=== PATIENT | male | born 1965 | race Caucasian/White ===

== ENCOUNTER 2021-05-28 08:16 | Emergency (ER) | payer OTHER, SELFPAY ==
[2021-05-28 08:35] VITALS: BP 157/95; PULSE 79; RESP 19; TEMP 36.9; O2SAT 99; BMI 29.8
--- NOTE | 2021-05-28 08:47 | ECG_ITS ---
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 Measurements Intervals [place] Rate: 75 P: 59 TN: 182 QRS: 30 QRSD: 91 T: 28 QT: 390 QTc: 437 Interpretive Statements SINUS RHYTHM WITH OCCASIONAL VENTRICULAR PREMATURE COMPLEXES Compared to ECG 05/28/2021 08:55:48 Ventricular premature complex(es) now present Myocardial infarct finding no longer present Electronically Signed On 05-28-2021 16:05:35 FINANCIAL SYSTEMS ANALYST by Ragini Ivy M.D. [email or web address] Real Estatewest [facility] of delta regional medical centerSmartExposeebluffton hospital.iCrumz/store/OM/[id number]
--- NOTE | 2021-05-28 08:47 | XR_ITS ---
WS: [id number] Exam: XR chest 1V portable [id number] Date/Time of Exam: 05/28/2021 9:06 AM Reason For Exam: chest pain No priors. Findings: The lungs are clear and fully expanded. Costophrenic angles are sharp. No infiltrates. Bronchovascula r relief appears normal. Cardiac silhouette is unremarkable. Bony elements are intact. XR/XR chest 1V portable [id number] IMPRESSION: Unremarkable chest radiograph.
[2021-05-28] MEDS: aspirin 81 mg Chew Tablet 324 MG PO (09:09)
[2021-05-28 09:22] VITALS: BP 171/102; PULSE 76; RESP 17; O2SAT 98
[2021-05-28 09:38] LABS: Basophils # 0.1 10^3/uL (0.0-0.1); Basophils % 0.9 %; Eosinophils # 0.2 10^3/uL (0.0-0.8); Eosinophils % 2.5 %; Hematocrit 49.9 % (42.0-52.0); Hemoglobin 16.2 g/dL (11.7-16.6); Lymphocytes # 1.6 10^3/uL (0.8-4.8); Lymphocytes % 24.4 %; Mean Corpuscular HGB Conc 32.5 g/dL (30.0-36.0); Mean Corpuscular Hemoglobin 30.6 pg (28.0-34.0); Mean Corpuscular Volume 94.3 fl (80-94); Mean Platelet Volume 11.2 fL (7.4-10.4); Monocytes # 0.7 10^3/uL (0.2-0.9); Nucleated Red Blood Cells % 0 %; Platelet Count 215 10^3/cmm (130-400); Red Blood Count 5.29 10^6/uL (4.1-5.3); Red Cell Distribution Width 11.9 % (12.1-15.1); White Blood Count 6.4 10^3/uL (4.0-10.0)
--- NOTE | 2021-05-28 09:59 | W.ED.CHESTPA ---
HPI - Chest Pain General: Chief Complaint: Chest Pain Stated Complaint: Chest Pain Time Seen by Provider: 05/28/21 08:19 History of Present Illness: HPI narrative: 55-year-old male presents emergency room complaining of what he describes as a numbness in the left side of his anterior chest. He denies any shortness of breath there is no radiation of discomfort. Began last night while at rest. He did have one episode of vomiting is not had any further nausea since then for the most part is resolved now. He states he does not particularly feel like a pressure more just a numb sensation. He equates it to a nerve impingement he had in his lumbar spine that radiates down his left leg. He is not previously had any known history of coronary artery disease. He has had these episodes in the past have been very short in duration lasting literally seconds and then resolving spontaneously. MD complaint: chest discomfort Onset (ago): day(s) (1) Timing of current episode: episodic Prior episodes: Yes Onset: during rest Pain location: left chest Pain radiation: none Severity: mild Relieving factors: nothing Exacerbating factors: nothing Associated symptoms: Deny abdominal pain, diaphoresis, dyspnea, fever(s), leg edema, nausea, palpitations, sense of impending doom, syncope or vomiting Treatment prior to arrival: none Review of Systems Const: Denies: fever(s) or diaphoresis ENMT: Denies: throat pain, ear or mastoid pain, nasal discharge or nasal congestion Card: Denies: palpitations or syncope Resp: Denies: dyspnea GI: Denies: abdominal pain, nausea or vomiting : Denies: flank pain, dysuria, urinary frequency or urinary urgency Skin/Breast: Denies: rash or pruritus Physical Exam Const: COMMON NORMALS: no acute distress GENERAL APPEARANCE: cooperative and comfortable ORIENTATION/CONSCIOUSNESS: Yes awake, Yes oriented to person, Yes oriented to place and Yes oriented to time HENMT: COMMON NORMALS: normocephalic, atraumatic, hearing grossly normal bilaterally and external ears normal HEAD & SCALP: normocephalic and atraumatic EXTERNAL EAR: Yes external ears normal Neck/C-Spine: COMMON NORMALS: no JVD Resp: COMMON NORMALS: normal respiratory effort, No retractions, No use of accessory muscles and clear to auscultation bilaterally AUSCULTATION: clear to auscultation bilaterally Cardio: COMMON NORMALS: no JVD, regular rate, regular rhythm and No murmurs present (Cardio) RATE: regular rate RHYTHM: regular rhythm GI: COMMON NORMALS: Soft to palpation and No hepatosplenomegaly present AUSCULTATION: Yes normoactive bowel sounds PALPATION: Yes Soft to palpation, No Tenderness to palpation present (GI), No Guarding due to palpation present (GI) and Yes No hepatosplenomegaly present Extremity: COMMON NORMALS: normal to inspection, capillary refill normal, no clubbing, cyanosis or edema, no calf tenderness and no pedal edema Neuro: SENSORIUM/ORIENTATION: Yes oriented to person, Yes oriented to place and Yes oriented to time Skin: COMMON NORMALS: no rashes or lesions noted GENERAL SKIN EXAM: no rashes or lesions noted Course Vital Signs: Vital signs: Vital Signs Temperature 98.5 F 05/28/21 08:35 Pulse Rate 76 05/28/21 12:19 Respiratory Rate 18 05/28/21 12:19 Blood Pressure 137/98 05/28/21 12:19 Pulse Oximetry 97 05/28/21 12:19 MDM - Chest Pain MDM Narrative: Medical decision making narrative: Labs and imaging reviewed on the chart. Recommend the patient start taking aspirin daily. EKGs also reviewed no acute ST changes noted troponins negative we will go and discharge home set up for outpatient stress testing return if has further problems. Lab Data: Labs: Lab Results 05/28/21 05/28/21 05/28/21 09:00 09:00 09:00 WBC 6.4 10^3/uL 10^3/ uL (4.0-10.0) RBC 5.29 10^6/uL 10^6 /uL (4.1-5.3) Hgb 16.2 g/dL g/dL (11.7-16.6) Hct 49.9 % % (42.0-52.0) MCV 94.3 fl H fl (80-94) MCH 30.6 pg pg (28.0-34.0) MCHC 32.5 g/dL g/dL (30.0-36.0) RDW 11.9 % L % (12.1-15.1) Plt Count 215 10^3/cmm 10^3 /cmm (130-400) MPV 11.2 fL H fL (7.4-10.4) Neut % (Auto) 61.0 % % Lymph % (Auto) 24.4 % % [place] % (Auto) 11.0 % % Eos % (Auto) 2.5 % % Baso % (Auto) 0.9 % % Neut # (Auto) 3.90 10^3/uL 10^3 /uL (1.8-7.7) Lymph # (Auto) 1.6 10^3/uL 10^3/ uL (0.8-4.8) [place] # (Auto) 0.7 10^3/uL 10^3/ uL (0.2-0.9) Eos # (Auto) 0.2 10^3/uL 10^3/ uL (0.0-0.8) Baso # (Auto) 0.1 10^3/uL 10^3/ uL (0.0-0.1) Nucleated RBC % (a uto) 0 % % Nucleated RBCs # 0.0 /100WBC /100W BC Sodium 139 mmol/L mmol/L (136-145) Potassium 3.7 mmol/L mmol/L (3.5-5.1) Chloride 100 mmol/L mmol/L (98-107) Carbon Dioxide 28 mmol/L mmol/L (22-29) Anion Gap 14.7 (5-19) BUN 11 mg/dL mg/dL (6-20) Creatinine 1.0 mg/dL mg/dL (0.7-1.2) GFR Calculation 78.2 mL/min L mL/ min (90-130) Glucose 100 mg/dL mg/dL (65-115) Calculated Osmolal ity 287 mOsm/kg mOsm/ kg (285-295) Calcium 10.1 mg/dL mg/dL (8.5-10.5) Total Bilirubin 0.4 mg/dL mg/dL (0.15-1.2) AST 32 U/L U/L (0-40) ALT 40 U/L U/L (0-41) Alkaline Phosphata se 88 IU/L IU/L (40-130) Troponin T Baselin e 8 ng/L ng/L (0-15) Troponin T 120 Min [place] Troponin T Total Protein 8.2 g/dL g/dL (6.6-8.7) Albumin 4.6 g/dL g/dL (3.5-5.2) Globulin 3.6 g/dL g/dL (1.3-4.6) 05/28/21 11:01 WBC RBC Hgb Hct MCV MCH MCHC RDW Plt Count MPV Neut % (Auto) Lymph % (Auto) [place] % (Auto) Eos % (Auto) Baso % (Auto) Neut # (Auto) Lymph # (Auto) [place] # (Auto) Eos # (Auto) Baso # (Auto) Nucleated RBC % (a uto) Nucleated RBCs # Sodium Potassium Chloride Carbon Dioxide Anion Gap BUN Creatinine GFR Calculation Glucose Calculated Osmolal ity Calcium Total Bilirubin AST ALT Alkaline Phosphata se Troponin T Baselin e Troponin T 120 Min [place] 7.30 ng/L ng/L (0-15) Delta Troponin T -0.70 ABS# L ABS# (0-10) Total Protein Albumin Globulin Discharge Plan Discharge Patient Disposition: Home Clinical Impression: Atypical chest pain Condition: Stable Prescriptions: New aspirin 81 mg tablet,delayed release (DR/EC) 81 mg PO DAILY Qty: 30 RF: 0 No Action terazosin 1 mg capsule 1 mg PO BEDTIME RF: 0 Aleve 220 mg Tablet 440 mg PO Q12H PRN (Reason: Pain) RF: 0 hydrochlorothiazide 25 mg tablet 25 mg PO QAM RF: 0 bupropion HCl 150 mg tablet extended release 24 hr 150 mg PO QAM RF: 0 Discharge Orders: Discharge ED (Routine); Ordered 05/28/21 Ordered By: Aryan Hurst Referrals: Shon Garza MD [Primary Care Provider] - Discharge Diet: Usual diet Discharge Activity: Limit activity as instructed Patient Instructions: Opioid Safety Activity Restrictions/Additional Instructions: jewelry store manager will make arrangements for a Lexiscan sestamibi stress test. Coding Level of Care Code ED Market Research Senior Project Manager for Juan Fwd Exam Comprehensive
[2021-05-28 10:16] LABS: Alanine Aminotransferase 40 U/L (0-41); Albumin Level 4.6 g/dL (3.5-5.2); Alkaline Phosphatase 88 IU/L (40-130); Anion Gap 14.7 (5-19); Aspartate Amino Transferase 32 U/L (0-40); Blood Urea Nitrogen 11 mg/dL (6-20); Calcium 10.1 mg/dL (8.5-10.5); Carbon Dioxide 28 mmol/L (22-29); Chloride 100 mmol/L (98-107); Globulin 3.6 g/dL (1.3-4.6); Glomerular Filtration Rate 78.2 mL/min (90-130); Glucose 100 mg/dL (65-115); Osmolality Calculated 287 mOsm/kg (285-295); Potassium 3.7 mmol/L (3.5-5.1); Sodium 139 mmol/L (136-145); Total Bilirubin 0.4 mg/dL (0.15-1.2); Total Protein 8.2 g/dL (6.6-8.7)
[2021-05-28 10:19] LABS: Troponin(5th) Baseline 8 ng/L (0-15)
[2021-05-28 12:19] VITALS: BP 137/98; PULSE 76; RESP 18; O2SAT 97
--- NOTE | 2021-05-28 14:47 | ECG_ITS ---
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 Measurements Intervals [place] Rate: 77 P: 46 IN: 185 QRS: 14 QRSD: 97 T: 30 QT: 379 QTc: 429 Interpretive Statements SINUS RHYTHM SEPTAL MYOCARDIAL INFARCTION , PROBABLY OLD [40+ ms Q WAVE IN V1/V2] No previous ECG available for comparison Electronically Signed On 05-28-2021 16:15:15 WASH TEST CHECKER by Ragini Ivy M.D. [email or web address] [email or web address]/store/[id number]
== END 2021-05-28 12:14 | disposition home or self-care (01) ==
PROVIDERS: Emergency Provider Family Medicine; PCP Family Medicine
DX: R07.89 Other chest pain (principal)
CPT/HCPCS: 71045; 80053; 84484; 85025; 93005; 99283

== ENCOUNTER 2023-04-12 02:41 | Emergency (ER) | payer OTHER, SELFPAY ==
--- NOTE | 2023-04-12 02:46 | ECG_ITS ---
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 Measurements Intervals [place] Rate: 74 P: 46 [place]: 207 QRS: 34 QRSD: 97 T: 21 QT: 398 QTc: 443 Interpretive Statements SINUS RHYTHM No previous ECG available for comparison Electronically Signed On 04-12-2023 8:26:56 CDT by Bernardo Medina M.D. [id number]
[2023-04-12 02:47] VITALS: BP 156/94; PULSE 77; RESP 21; O2SAT 97; BMI 30.5
--- NOTE | 2023-04-12 02:50 | W.ED.SYNCOPE ---
HPI - Syncope General: Chief Complaint: Syncope Stated Complaint: syncope Time Seen by Provider: 04/12/23 02:42 Source: EMS Mode of arrival: EMS Limitations: no limitations History of Present Illness: Patient is a 57-year-old male who presents to the emergency room via EMS for syncopal episode. Patient reports that he was up to the restroom at home, sitting on the toilet and began to fall face forward. Patient woke up face down with several abrasions to his face. Patient did hit his head and had loss of consciousness. Patient reports neck pain, bilateral forearm and wrist pain, and facial pain. Patient denies any chest pain, shortness of breath, abdominal pain, nausea or vomiting. Patient reports that he has also been working more than usual and feels more overworked/increased weakness. Patient received pain medication via EMS. 0/10 pain at this time. MD complaint: loss of consciousness and felt faint Associated symptoms: Deny abdominal pain, chest pain, fever(s), headache(s) or nausea Review of Systems Const: Denies: fever(s) or chills Eyes: Reports: blurry vision ENMT: Denies: throat pain or mouth pain Card: Denies: chest pain or palpitations Resp: Denies: dyspnea or productive cough GI: Denies: abdominal pain, nausea or vomiting : Denies: flank pain or difficulty urinating Musc: Reports: neck pain and extremity pain Skin/Breast: Denies: rash or pruritus Neuro: Denies: headache(s) PFSH ED PFSH: Medical History BPH (benign prostatic hyperplasia) HTN (hypertension) Tobacco dependence due to chewing tobacco Surgical History History of appendectomy Social History Smoking and tobacco status: never smoked Physical Exam Const: COMMON NORMALS: patient oriented x3 and alert GENERAL APPEARANCE: cooperative HENMT: COMMON NORMALS: normocephalic HEAD & SCALP: normocephalic and laceration FACE & SINUS: laceration Eye: COMMON NORMALS: Equal, round and reactive pupils present and EOMs intact bilaterally PUPIL: Yes Equal, round and reactive pupils present Neck/C-Spine: COMMON NORMALS: no lymphadenopathy and no JVD GENERAL: Yes normal visual inspection Lymph: LYMPHATIC: no lymphadenopathy noted Chest: COMMONS NORMALS: normal inspection of the chest CHEST: Yes Symmetrical chest wall rise Resp: COMMON NORMALS: normal respiratory effort and clear to auscultation bilaterally EFFORT & INSPECTION: Yes symmetric chest movement AUSCULTATION: clear to auscultation bilaterally Cardio: COMMON NORMALS: no JVD, regular rhythm and S1 normal heart sound present RHYTHM: regular rhythm HEART SOUNDS: S1 normal heart sound present GI: COMMON NORMALS: Normal to inspection, nondistended, normoactive bowel sounds present and Soft to palpation INSPECTION: Yes normal to inspection AUSCULTATION: Yes normoactive bowel sounds PALPATION: Yes Soft to palpation Neuro: COMMON NORMALS: patient oriented x3 SENSORIUM/ORIENTATION: Yes alert Course Vital Signs: Vital signs: Vital Signs Pulse Rate 77 04/12/23 02:47 Respiratory Rate 17 04/12/23 03:56 Blood Pressure 156/94 04/12/23 02:47 Pulse Oximetry 98 04/12/23 03:56 Oxygen Delivery Me thod Room Air 04/12/23 02:47 MDM - Syncope Medical Decision Making Patient presents here with a syncopal event is likely vagal weight loss possibly fell asleep on toilet he has been exhausted imaging here is normal so his blood work he feels improved he is stable for discharge she is to follow PCP and return if worsening. Medical Records I reviewed the patient's medical records. Lab Data I reviewed the patient's lab results. 04/12/23 03:28 04/12/23 03:28 Radiology Impressions Cervical Spine CT 04/12/23 02:59 IMPRESSION: No acute cervical fracture. Head CT 04/12/23 02:59 IMPRESSION: No acute intracranial abnormality. Laboratory Results WBC 9.31 10^3/uL (3.29-11.43) 04/12/23 03:28 RBC 4.86 10^6/uL (3.85-5.65) 04/12/23 03:28 Hgb 14.90 g/dL (11.27-16.99) 04/12/23 03:28 Hct 44.7 % (37-53) 04/12/23 03:28 MCV 92.0 fl (82-101) 04/12/23 03:28 MCH 30.7 pg (27-33) 04/12/23 03:28 MCHC 33.3 g/dL (30-55) 04/12/23 03:28 RDW 12.0 % (12.1-15.1) L 04/12/23 03:28 Plt Count 187 10^3/cmm (157-399) 04/12/23 03:28 MPV 10.4 fL (7.4-10.4) 04/12/23 03:28 Neut % (Auto) 70.1 % 04/12/23 03:28 Lymph % (Auto) 19.3 % 04/12/23 03:28 [place] % (Auto) 8.3 % 04/12/23 03:28 Eos % (Auto) 1.5 % 04/12/23 03:28 Baso % (Auto) 0.6 % 04/12/23 03:28 Neut # (Auto) 6.52 10^3/uL (1.8-7.7) 04/12/23 03:28 Lymph # (Auto) 1.8 10^3/uL (0.8-4.8) 04/12/23 03:28 [place] # (Auto) 0.8 10^3/uL (0.2-0.9) 04/12/23 03:28 Eos # (Auto) 0.1 10^3/uL (0.0-0.8) 04/12/23 03:28 Baso # (Auto) 0.1 10^3/uL (0.0-0.1) 04/12/23 03:28 Nucleated RBC % (auto) 0 % 04/12/23 03:28 Nucleated RBCs # 0.0 /100WBC 04/12/23 03:28 Sodium 139 mmol/L (136-145) 04/12/23 03:28 Potassium 3.1 mmol/L (3.5-5.1) L 04/12/23 03:28 Chloride 101 mmol/L (98-107) 04/12/23 03:28 Carbon Dioxide 30 mmol/L (22-29) H 04/12/23 03:28 Anion Gap 11.1 (5-19) 04/12/23 03:28 BUN 10 mg/dL (6-20) 04/12/23 03:28 Creatinine 0.9 mg/dL (0.7-1.2) 04/12/23 03:28 GFR Calculation 87.6 mL/min (90-130) L 04/12/23 03:28 Glucose 127 mg/dL (65-115) H 04/12/23 03:28 Calculated Osmolality 289 mOsm/kg (285-295) 04/12/23 03:28 Calcium 9.3 mg/dL (8.5-10.5) 04/12/23 03:28 All radiology interpretation(s) finalized by discharge Discharge Plan Discharge Patient Disposition: Home Clinical Impression: Syncope, Closed head injury Condition: Stable Prescriptions: New Naprosyn 500 mg tablet 500 mg PO BID PRN (Reason: pain) Qty: 20 0RF No Action bupropion HCl 300 mg tablet extended release 24 hr 300 mg PO QAM Qty: 30 11RF terazosin 1 mg capsule 1 mg PO BEDTIME Qty: 90 3RF metoprolol succinate 50 mg tablet extended release 24 hr 50 mg PO DAILY Qty: 90 3RF hydrochlorothiazide 25 mg tablet 25 mg PO QAM Qty: 90 3RF Aleve 220 mg Tablet 440 mg PO Q12H PRN (Reason: Pain) aspirin 81 mg tablet,delayed release (DR/EC) 81 mg PO DAILY Qty: 30 0RF Discharge Orders: Discharge ED (Routine); Ordered 04/12/23 Ordered By: Ellen Silvestre Referrals: Shon Garza MD [Primary Care Provider] - 1-3 days Discharge Diet: Advance as tolerated Discharge Activity: Resume usual activity Patient Instructions: Syncope (ED), Head Injury (ED) Coding Level of Care Code ED Business Support for Juan Berrios
--- NOTE | 2023-04-12 02:59 | CTR_ITS ---
PROCEDURE INFORMATION: Exam: CT Head Without Contrast Exam date and time: 04/12/2023 3:09 AM Age: 57 years old Clinical indication: Injury or trauma; Blunt trauma (contusions or hematomas); Injury details: Fall, patient went unconscious when he woke up to walk to the bathroom, denies headache, small abrasions to face; Additional info: Head injury TECHNIQUE: Imaging protocol: Computed tomography of the head without contrast. Radiation optimization: All CT scans at this facility use at least one of these dose optimization techniques: automated exposure control; mA and/or kV adjustment per patient size (includes targeted exams where dose is matched to clinical indication); or iterative reconstruction. REPORTING DATA: Count of CT and Cardiac NM exams in prior 12 months: This patient has received 0 known CTs and 0 known cardiac nuclear medicine studies in the 12 months prior to the current study. COMPARISON: No relevant prior studies available. RADIATION DOSE METRICS: Total DLP (mGy-cm): 1134.88 FINDINGS: Brain: No hemorrhage. No edema, mass effect or midline shift. Periventricular and deep white matter hypodensities compatible with chronic microvascular ischemic changes. Cerebral ventricles: No ventriculomegaly. Paranasal sinuses: Visualized sinuses are unremarkable. No fluid levels. Mastoid air cells: No mastoid effusion. Bones/joints: No acute fracture. Soft tissues: Unremarkable. CT/CT head wo con* [id number] IMPRESSION: No acute intracranial abnormality.
--- NOTE | 2023-04-12 02:59 | CTR_ITS ---
PROCEDURE INFORMATION: Exam: CT Cervical Spine Without Contrast Exam date and time: 04/12/2023 3:12 AM Age: 57 years old Clinical indication: Injury or trauma; Blunt trauma; Injury details: Fall, patient went unconscious when he woke up to walk to the bathroom, denies headache, small abrasions to face, PT states he has neck stiffness TECHNIQUE: Imaging protocol: Computed tomography of the cervical spine without contrast. Radiation optimization: All CT scans at this facility use at least one of these dose optimization techniques: automated exposure control; mA and/or kV adjustment per patient size (includes targeted exams where dose is matched to clinical indication); or iterative reconstruction. REPORTING DATA: Count of CT and Cardiac NM exams in prior 12 months: This patient has received 0 known CTs and 0 known cardiac nuclear medicine studies in the 12 months prior to the current study. COMPARISON: CT head wo con* [id number] 04/12/2023 3:09 AM RADIATION DOSE METRICS: Total DLP (mGy-cm): 235.27 FINDINGS: Bones/joints: Degenerative changes including osteophytes, disc space narrowing, endplate spurring and osteophyte disc complex sees. Findings are most prominent at C4-C5 and C5-C6 with associated neuroforaminal and canal stenosis. There is no acute cervical fracture.. Lungs: No pneumothorax. Soft tissues: Unremarkable. CT/CT cervical spin wo con* [id number] IMPRESSION: No acute cervical fracture.
[2023-04-12 03:39] LABS: Basophils # 0.1 10^3/uL (0.0-0.1); Basophils % 0.6 %; Eosinophils # 0.1 10^3/uL (0.0-0.8); Eosinophils % 1.5 %; Hematocrit 44.7 % (37-53); Lymphocytes # 1.8 10^3/uL (0.8-4.8); Lymphocytes % 19.3 %; Mean Corpuscular HGB Conc 33.3 g/dL (30-55); Mean Corpuscular Hemoglobin 30.7 pg (27-33); Mean Platelet Volume 10.4 fL (7.4-10.4); Monocytes # 0.8 10^3/uL (0.2-0.9); Monocytes % 8.3 %; Neutrophils # 6.52 10^3/uL (1.8-7.7); Neutrophils % 70.1 %; Nucleated Red Blood Cells % 0 %; Platelet Count 187 10^3/cmm (157-399); Red Blood Count 4.86 10^6/uL (3.85-5.65); White Blood Count 9.31 10^3/uL (3.29-11.43)
[2023-04-12 03:56] VITALS: RESP 17; O2SAT 98
[2023-04-12] MEDS: morphine 4 mg/mL SDV 1 mL IVP (03:56)
[2023-04-12 03:58] LABS: Anion Gap 11.1 (5-19); Blood Urea Nitrogen 10 mg/dL (6-20); Calcium 9.3 mg/dL (8.5-10.5); Carbon Dioxide 30 mmol/L (22-29); Chloride 101 mmol/L (98-107); Glomerular Filtration Rate 87.6 mL/min (90-130); Glucose 127 mg/dL (65-115); Osmolality Calculated 289 mOsm/kg (285-295); Potassium 3.1 mmol/L (3.5-5.1); Sodium 139 mmol/L (136-145)
[2023-04-12 04:04] VITALS: BP 149/91; PULSE 71; RESP 14; O2SAT 97
[2023-04-12 04:30] VITALS: BP 148/94; PULSE 57; RESP 13; O2SAT 97
[2023-04-12 04:40] VITALS: BP 144/94; PULSE 61; RESP 13; O2SAT 97
== END 2023-04-12 04:41 | disposition home or self-care (01) ==
PROVIDERS: Emergency Provider Emergency Medicine; PCP Family Medicine
DX: R55 Syncope and collapse (principal); S09.8XXA Other specified injuries of head, initial encounter; Z79.82 Long term (current) use of aspirin; I10 Essential (primary) hypertension; W18.11XA Fall from or off toilet without subsequent striking against object, initial encounter; Y92.002 Bathroom of unspecified non-institutional (private) residence as the place of occurrence of the external cause
CPT/HCPCS: 70450; 72125; 80048; 85025; 93005; 96374; 99285; J2270

== ENCOUNTER → 2023-09-06 08:02 | Outpatient (BNVA) | payer OTHER, SELFPAY | PROVIDERS: PCP Family Medicine; Visit Provider Clinical Nurse Specialist Adult Health | DX: M79.675 Pain in left toe(s) (principal); R53.83 Other fatigue; M25.572 Pain in left ankle and joints of left foot | CPT/HCPCS: 80053; 84443; 84550; 85025; 85651; 86038; 86140; 86431 ==

== ENCOUNTER → 2023-10-17 07:25 | Outpatient (BNVA) | payer OTHER, SELFPAY | PROVIDERS: PCP Family Medicine; Visit Provider Family Medicine | DX: M10.9 Gout, unspecified (principal); I10 Essential (primary) hypertension | CPT/HCPCS: 80048; 84550; 86140 ==

== ENCOUNTER 2024-01-16 06:43 | Outpatient (CLI) | payer OTHER, SELFPAY ==
--- NOTE | 2024-01-16 07:00 | USR_ITS ---
PROCEDURE INFORMATION: Exam: US Abdomen; Limited Exam date and time: 01/16/2024 7:08 AM Age: 58 years old Clinical indication: Abdominal pain; Epigastric; Additional info: Epigastric pain TECHNIQUE: Imaging protocol: Real time ultrasound of the abdomen with image documentation. Limited exam focused on the region of clinical interest. COMPARISON: No relevant prior studies available. FINDINGS: The liver is echogenic compatible with fatty infiltration. No focal liver masses identified. No intrahepatic ductal dilatation is appreciated. The portal vein is patent. No gallstones are appreciated. No pericholecystic fluid or gallbladder wall thickening is appreciated. The common bile duct measures 5 mm. The right kidney measures 11.6 cm in length and is normal in echotexture. No hydronephrosis is appreciated. US/US gall bladder [id number] IMPRESSION: 1. Fatty infiltration of the liver.
== END 2024-01-16 06:44 | disposition home or self-care (01) ==
LOC: RAD 06:43
PROVIDERS: PCP Family Medicine; Visit Provider Surgery
DX: R10.13 Epigastric pain (principal); K76.0 Fatty (change of) liver, not elsewhere classified
CPT/HCPCS: 76705

== ENCOUNTER 2024-02-09 07:46 | Outpatient (CLI) | payer OTHER, SELFPAY ==
--- NOTE | 2024-02-09 08:00 | NM_ITS ---
WS: [id number] NUCLEAR MEDICINE HIDA SCAN CLINICAL INFORMATION: epigastric pain TECHNIQUE: Following intravenous administration of 7.8 mCi of technetium 99m mebrofenin, images of th e abdomen were obtained over the course of 60 minutes. Next, gallbladder ejection fraction was determ ined by obtaining preprandial and one-hour postprandial images of the gallbladder following oral kait stion of Ensure. COMPARISON: 01/16/2024 FINDINGS: Normal hepatic uptake at 5 minutes. Normal hepatic excretion. Gallbladder is visualized by 15 minutes . No evidence of acute cholecystitis. Normal common bile duct and small bowel activity. Gallbladder e jection fraction 82% within normal limits. NM/NM hepatobiliary w phar* [id number] IMPRESSION: 1. No evidence of acute or chronic cholecystitis. 2. Gallbladder ejection fraction 82% within normal limits.
== END 2024-02-09 07:47 | disposition home or self-care (01) ==
PROVIDERS: PCP Family Medicine; Visit Provider Surgery
DX: R10.13 Epigastric pain (principal)
CPT/HCPCS: 78227; A9537

== ENCOUNTER 2024-03-06 07:56 | Day surgery (SDC) | payer OTHER, SELFPAY ==
[2024-03-06 08:13] VITALS: BP 140/89; PULSE 75; RESP 18; TEMP 36.1; O2SAT 98; BMI 29.8
[2024-03-06] MEDS: sodium chloride 0.9% 1,000 ML 30 ML IV (08:18)
--- NOTE | 2024-03-06 08:29 | PC.NURSE ---
iv started per associate of science in nursing on 2nd attempt.
--- NOTE | 2024-03-06 09:09 | ANES.PREANE2 ---
Pre-Anesthetic Assessment Height/Weight: Height 1.83 m Weight 99.79 kg Temp Pulse Resp BP Pulse Ox O2 Del Method 97 F L 75 18 140/89 98 Room Air 03/06/24 08:13 03/06/24 08:13 03/06/24 08:13 03/06/24 08:13 03/06/24 08:13 03/06/24 08:13 Preop Diagnosis: GERD, epigastric pain, screening Operation Date: 03/06/24 09:00 Proposed Procedures p EGD 04893, 51058, G0105, K21.9, R10.13, R14., Z12.11(Not Applicable) - Barrie Maradiaga DO s Colonoscopy(Not Applicable) - Barrie Maradiaga DO Familial anesthetic complications: none Was Beta Tavo taken within 24 hours: Yes Was Clonidine taken within 24 hours: N/A Last intake: Intake Last Liquid Date 03/05/24 Last Liquid Time 21:00 Last Solid Date 03/04/24 Last Solid Time 18:00 Social No alcohol and No tobacco Exam alert, oriented x 3 and clear to auscultation bilaterally Airway Mallampati: Class I Dentition: false History/ROS No significant history except as noted Pulmonary None reported CV/HEM Hypertension BPH Hepatic None reported GI Gastroesophageal Reflux Disease Metabolic None reported Musc/skel None reported Neuropsych Anxiety Anesthetic Plan ASA status: 2 Anesthesia: Anesthesia Evaluation and MAC Risk of > 500 ml blood loss (7ml/kg in children): No Medications/Allergies Home Medications Medication Instructions Recorded Confirmed Last Taken Type amlodipine 5 mg tablet 5 mg PO DAILY #30 tabs 09/12/23 03/04/24 03/06/24 05:45 Rx allopurinol 300 mg tablet 300 mg PO DAILY #30 tabs 12/21/23 03/04/24 03/05/24 Rx omeprazole 40 mg capsule,delayed 40 mg PO DAILY #30 caps 12/21/23 03/04/24 03/05/24 Rx release metoprolol succinate 50 mg 50 mg PO DAILY 03/04/24 03/04/24 03/06/24 05:45 History tablet,extended release 24 hr Allergies Allergy/AdvReac Type Severity Reaction Status Date / Time acetaminophen Allergy Unknown Unknown Verified 12/29/23 11:14 [From Coricidin] chlorpheniramine Allergy Unknown Unknown Verified 12/29/23 11:14 [From Coricidin] phenylpropanolamine Allergy Unknown Unknown Verified 12/29/23 11:14 [From Coricidin] hydrochlorothiazide AdvReac hypokalemia/ Verified 12/29/23 11:14 gout Current Medications Generic Name Dose Route Start Last Admin Trade Name Freq PRN Reason Stop Dose Admin Sodium Chloride 1,000 mls @ 30 mls/hr 03/06/24 08:15 03/06/24 08:18 Sodium Chloride 0.9% IV 03/07/24 08:14 30 mls/hr .Q24H BRIA Administration PFSH Anesthesia Medical History Gout Tobacco dependence due to chewing tobacco BPH (benign prostatic hyperplasia) HTN (hypertension) Surgical History History of appendectomy Social History Smoking and tobacco/nicotine status: never used tobacco/nicotine Data Anesthesia Cardiac Studies: Holter Monitor 08/24/21
--- NOTE | 2024-03-06 09:39 | PM.HP ---
Providers/Chief Complaint Primary Care Provider: Shon Garza MD Chief Complaint: K21.9, R10.13, R14.0, Z12.11 History of Present Illness Jann Tang is a 58 year old male Review of Systems General: Reports: 10 or more systems reviewed and unremarkable except in HPI and below Medications/Allergies Home Medications Medication Instructions Recorded Confirmed Last Taken Type amlodipine 5 mg tablet 5 mg PO DAILY #30 tabs 09/12/23 03/04/24 03/06/24 05:45 Rx allopurinol 300 mg tablet 300 mg PO DAILY #30 tabs 12/21/23 03/04/24 03/05/24 Rx omeprazole 40 mg capsule,delayed 40 mg PO DAILY #30 caps 12/21/23 03/04/24 03/05/24 Rx release metoprolol succinate 50 mg 50 mg PO DAILY 03/04/24 03/04/24 03/06/24 05:45 History tablet,extended release 24 hr Allergies Allergy/AdvReac Type Severity Reaction Status Date / Time acetaminophen Allergy Unknown Unknown Verified 12/29/23 11:14 [From Coricidin] chlorpheniramine Allergy Unknown Unknown Verified 12/29/23 11:14 [From Coricidin] phenylpropanolamine Allergy Unknown Unknown Verified 12/29/23 11:14 [From Coricidin] hydrochlorothiazide AdvReac hypokalemia/ Verified 12/29/23 11:14 gout PFSH Acute PFSH: Medical History Gout Tobacco dependence due to chewing tobacco BPH (benign prostatic hyperplasia) HTN (hypertension) Surgical History History of appendectomy Social History Smoking and tobacco/nicotine status: never used tobacco/nicotine Vitals/I&O/Wt Last Vital Signs Temp 97 F L 03/06/24 08:13 Pulse 75 03/06/24 08:13 Resp 18 03/06/24 08:13 BP 140/89 03/06/24 08:13 Pulse Ox 98 03/06/24 08:13 O2 Del Method Room Air 03/06/24 08:13 Weight last 48 hrs Weight 220 lb A&P Assessment and plan (1) GERD (gastroesophageal reflux disease): (2) Bloating: (3) Colon cancer screening: (4) Epigastric pain: Plan EGD and colonoscopy Attestations Medical Necessity Statement*: Home Coding Level of Care Code Acute Code for g Fwd Diagnoses GERD (gastroesophageal reflux disease) K21.9 Bloating R14.0 Colon cancer screening Z12.11 Epigastric pain R10.13
[2024-03-06 10:04] VITALS: BP 96/76; PULSE 80; RESP 16; TEMP 36.1; O2SAT 96
[2024-03-06 10:20] VITALS: BP 112/89; PULSE 77; RESP 18; O2SAT 94
--- NOTE | 2024-03-06 10:45 | ANE.PACU2 ---
Inpatient post-anesthesia follow up: Airway intact: Yes Vital signs: Temperature 97.0 F Pulse Rate 77 Respiratory Rate 18 Blood Pressure 112/89 Pulse Oximetry 94 Oxygen Delivery Me thod Room Air Oxygen Flow Rate Fraction of Inspir ed Oxygen Hydration adequate: Yes Nausea and vomiting: No Pain level: 1 Mental status: Baseline
== END 2024-03-06 10:46 | disposition home or self-care (01) ==
PROVIDERS: PCP Family Medicine; Visit Provider Surgery
PROC: 0DJ08ZZ Inspection of Upper Intestinal Tract, Via Natural or Artificial Opening Endoscopic (ICD-10-PCS; CPT 43235; principal; 2024-03-06 09:00)
PROC: 0DJD8ZZ Inspection of Lower Intestinal Tract, Via Natural or Artificial Opening Endoscopic (ICD-10-PCS; CPT 45378; 2024-03-06 09:00)
DX: Z12.11 Encounter for screening for malignant neoplasm of colon (principal); K21.9 Gastro-esophageal reflux disease without esophagitis; R10.13 Epigastric pain; R14.0 Abdominal distension (gaseous); K29.50 Unspecified chronic gastritis without bleeding; D12.6 Benign neoplasm of colon, unspecified; I10 Essential (primary) hypertension; N40.0 Benign prostatic hyperplasia without lower urinary tract symptoms
CPT/HCPCS: 43239; 45385; 88305; 88342; J2704; J7030

== ENCOUNTER 2024-05-07 07:03 | Day surgery (SDC) | payer OTHER, SELFPAY ==
[2024-05-07] VITALS (9 sets, daily range): BP systolic 120–132; BP diastolic 62–98; PULSE 50–74; RESP 16–18; TEMP 36.1–36.5; O2SAT 92–98; BMI 30.7
--- NOTE | 2024-05-07 07:14 | W.PM.OPSUD ---
Surgery/Procedure H&P Update DATE OF PROCEDURE: May 07, 2024 DATE H&P PERFORMED: 04/26/24 H&P UPDATE INFORMATION: I have reviewed H&P completed within last 30 days, I have examined patient prior to procedure and No changes to prior documentation PLANNED PROCEDURE: Operation Date: 05/07/24 08:45 Proposed Procedures p Laparoscopic Cholecystectomy 45394, K82.8(Not Applicable) - Barrie Maradiaga DO
--- NOTE | 2024-05-07 07:40 | P.ANESASSM_ITS ---
Pre-Anesthetic Assessment Height/Weight: Height 6 ft Weight 227 lb Temp Pulse Resp BP Pulse Ox O2 Del Method 97.7 F 61 18 121/78 96 Room Air 05/07/24 07:26 05/07/24 07:26 05/07/24 07:26 05/07/24 07:26 05/07/24 07:26 05/07/24 07:26 Preop Diagnosis: Biliary dyskinesia Operation Date: 05/07/24 08:45 Proposed Procedures p Laparoscopic Cholecystectomy 93602, K82.8(Not Applicable) - Barrie Maradiaga, DO Was Beta Tavo taken within 24 hours: N/A Was Clonidine taken within 24 hours: N/A Social Tobacco and No alcohol chews tobacco Exam alert, oriented x 3, clear to auscultation bilaterally and regular rate & rhythm Airway Submandibular: within normal limits Cervical ROM: within normal limits Mallampati: Class II Dentition: false Comments: Comments: upper false, chiped bottom teeth Anesthetic Plan ASA status: 2 Anesthesia: General Other: No prior issues with anesthesia NPO since yesterday evening History of GERD on omeprazole Hypertension on amlodipine and metoprolol. BB taken yesterday. Preop BP 121/78 Denies any pulmonary issues EKG showing sinus rhythm Plan for GETA Medications/Allergies Home Medications Medication Instructions Recorded Confirmed Last Taken Type amlodipine 5 mg tablet 5 mg PO DAILY #30 tabs 09/12/23 05/06/24 05/06/24 Rx allopurinol 300 mg tablet 300 mg PO DAILY #30 tabs 12/21/23 05/06/24 05/06/24 Rx omeprazole 40 mg capsule,delayed 40 mg PO DAILY #30 caps 12/21/23 05/06/24 05/06/24 Rx release metoprolol succinate 50 mg 50 mg PO DAILY 03/04/24 05/06/24 05/06/24 History tablet,extended release 24 hr alprazolam 0.5 mg tablet 0.5 mg PO BID PRN anxiety #5 tabs 03/21/24 05/06/24 Unknown Rx Allergies Allergy/AdvReac Type Severity Reaction Status Date / Time acetaminophen Allergy Unknown ADR-Nausea Verified 05/06/24 12:43 [From Coricidin] chlorpheniramine Allergy Unknown ADR-Nausea Verified 05/06/24 12:43 [From Coricidin] phenylpropanolamine Allergy Unknown ADR-Nausea Verified 05/06/24 12:43 [From Coricidin] hydrochlorothiazide AdvReac hypokalemia/ Verified 03/21/24 07:26 gout [facility] Anesthesia Medical History (Updated 04/26/24 @ 09:40 by Barrie Maradiaga DO) Gout Tobacco dependence due to chewing tobacco BPH (benign prostatic hyperplasia) HTN (hypertension) Surgical History (Updated 05/06/24 @ 13:17 by Ariana Urban RN) History of appendectomy Social History Smoking and tobacco/nicotine status: never used tobacco/nicotine Data Anesthesia Cardiac Studies: Holter Monitor 08/24/21
[2024-05-07] MEDS: sodium chloride 0.9% 1,000 ML 30 ML IV (07:58)
[2024-05-07] MEDS: ceFAZolin 2,000 mg SDV 2000 MG IVP (09:02)
[2024-05-07] MEDS: lidocaine-epi 2% PF 1:200,000 20 mL SDV 10 ML INJECTION (09:22)
--- NOTE | 2024-05-07 09:49 | P.OP_ITS ---
Operative Report Date of procedure: May 07, 2024 Surgeon: Barrie Maradiaga DO Brief History: This is a very pleasant 58-year-old gentleman who presented my office with biliary colic. He was diagnosed with biliary dyskinesia. Laparoscopic cholecystectomy was indicated. The risks and benefits were explained and documented. Procedure: Preoperative diagnosis: Biliary dyskinesia Postoperative diagnosis: Same Procedure performed: Laparoscopic cholecystectomy Surgeon: Dr. Barrie Maradiaga DO Estimated blood loss: 5 mL Specimens: Gallbladder to pathology Complications: None apparent Description of procedure: Patient was wheeled into the operative room and placed on the OR table in a supine position. Abdomen was inspected prepped and draped in usual sterile fashion. Time-out was performed and all present were in agreement. A 15 blade scalp was used to make a stab incision in the left upper quadrant and intra- abdominal insufflation was achieved using a Veress needle. After localizing the tissue incisions were made and a 5 millimeter trocar was placed into the umbilicus as well as 2 in the right upper quadrant. A 12 millimeter trocar was placed in the epigastrium. Gallbladder was grasped and elevated. The triangle of Calot was carefully dissected using blunt dissection and electrocautery until the triangle of Calot clearly identified. The cystic duct was clipped proximally and double clipped distally. The duct was then ligated proximally. The cystic artery was doubly clipped and ligated. The gallbladder was then removed from the liver bed using electrocautery. The gallbladder was removed from the abdomen using an Endo-Catch bag through the epigastric incision. The liver bed was inspected and no bleeding was seen. The abdomen was irrigated and suctioned. All ports removed. Skin was washed and dried. Incisions were closed with 4-0 Monocryl in a subcuticular interrupted fashion. Skin glue was applied. Patient tolerated the procedure well.
[2024-05-07] MEDS: HYDROcodone-acetaminophen 7.5-325 mg Tablet 1 TAB PO (10:33)
--- NOTE | 2024-05-07 11:13 | ANE.PACU2 ---
Inpatient post-anesthesia follow up: Airway intact: Yes Vital signs: Temperature 97 F Pulse Rate 50 Respiratory Rate 18 Blood Pressure 132/83 Pulse Oximetry 94 Oxygen Delivery Me thod Room Air Oxygen Flow Rate Fraction of Inspir ed Oxygen Hydration adequate: Yes Nausea and vomiting: No Pain level: 2 Mental status: Baseline
== END 2024-05-07 11:13 | disposition home or self-care (01) ==
PROVIDERS: PCP Family Medicine; Visit Provider Surgery
PROC: 0FT44ZZ Resection of Gallbladder, Percutaneous Endoscopic Approach (ICD-10-PCS; CPT 47562; principal; 2024-05-07 08:45)
DX: K80.10 Calculus of gallbladder with chronic cholecystitis without obstruction (principal); E78.89 Other lipoprotein metabolism disorders; K21.9 Gastro-esophageal reflux disease without esophagitis; I10 Essential (primary) hypertension; N40.0 Benign prostatic hyperplasia without lower urinary tract symptoms; F17.220 Nicotine dependence, chewing tobacco, uncomplicated
CPT/HCPCS: 47562; 88304; J0690; J1100; J2371; J2405; J2704; J2710; J3010; J3490; J7030

== ENCOUNTER → 2024-06-03 08:20 | Outpatient (BNVA) | payer OTHER, SELFPAY | PROVIDERS: PCP Family Medicine; Visit Provider Family Medicine | DX: M10.9 Gout, unspecified (principal); R53.83 Other fatigue; Z12.5 Encounter for screening for malignant neoplasm of prostate; N40.1 Benign prostatic hyperplasia with lower urinary tract symptoms; R35.1 Nocturia; K21.9 Gastro-esophageal reflux disease without esophagitis | CPT/HCPCS: 80053; 80061; 82533; 84153; 84403; 84550; 85025 ==

== ENCOUNTER → 2024-10-23 12:53 | Outpatient (BNVA) | payer OTHER, SELFPAY | PROVIDERS: PCP Family Medicine; Visit Provider Internal Medicine | DX: R07.9 Chest pain, unspecified (principal); R94.31 Abnormal electrocardiogram [ECG] [EKG] | CPT/HCPCS: 93005 ==

== ENCOUNTER 2024-12-18 12:35 | Outpatient (CLI) | payer OTHER, SELFPAY ==
--- NOTE | 2024-12-18 | ECG_ITS ---
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 Interpretive Statements Regular treadmill exercise stress test PROCEDURE: At the baseline, the patient's blood pressure was 156/95 with a heart rate of 93. The baseline electrocardiogram showed normal sinus rhythm with poor R wave progression and some nonspecific T wave changes in inferior leads. The patient exercised for 5 minutes and 29 seconds on a standard Yg protocol. Patient attained a maximum heart rate of 152 beats per minute(93% of the maximum predicted heart rate) with a blood pressure at the peak exercise of 191/88 mm Hg. The EKG at the peak exercise revealed nonspecific ST-T changes, diffused. Patient did not have any chest pain or any significant cardiac arrhythmias with the exercise During the recovery phase, there were no new changes. Blood pressure at the end of the recovery phase was 157/99 mm Hg with a heart rate of 108 per minute. CONCLUSION: 1. Nonspecific EKG changes with the treadmill exercise 2. No exercise-induced chest pain or cardiac arrhythmia 3. Impaired exercise tolerance, attained a maximum of 7 point METs Electronically Signed On 12-20-2024 22:34:46 CDT by Han Ramirez M.D. [email or web address]
[2024-12-18 12:46] VITALS: BMI 30.6
[2024-12-18 13:12] VITALS: BP 158/97; PULSE 106
== END 2024-12-18 12:36 | disposition home or self-care (01) ==
LOC: CDL 12:36
PROVIDERS: PCP Family Medicine; Visit Provider Internal Medicine
DX: R07.9 Chest pain, unspecified (principal); R06.02 Shortness of breath
CPT/HCPCS: 93017

== ENCOUNTER 2024-12-25 06:12 | Outpatient (CLI) | payer OTHER, SELFPAY ==
--- NOTE | 2024-12-25 06:15 | USCV_ITS ---
Jann Tang Age: 59 Gender: M : 1965 Exam Date: 12/25/2024 06:29 Ordering Phys: Bernardo Medina M.D ([email or web address]) Technologist: Exam Location: [facility] [place] Indication: murmur sob BP: 120 / 70 HR: 190 Rhythm: Sinus Technical Quality: Adequate MEASUREMENTS (Male / Female) Normal Values 2D ECHO LV Diastolic Diameter PLAX 3.8 cm 4.2 - 5.9 / 3.9 - 5.3 cm IVS Diastolic Thickness 1.3 cm 0.6 - 1.0 / 0.6 - 0.9 cm IVS Systolic Thickness 1.9 cm LVPW Diastolic Thickness 1.2 cm 0.6 - 1.0 / 0.6 - 0.9 cm LVPW Systolic Thickness 1.5 cm LVOT Diameter 2.5 cm LV Ejection Fraction 2D Teich 30.0 % LV Ejection Fraction MOD 4C 71.5 % LV Ejection Fraction MOD 2C 72.0 % LV Ejection Fraction 2C AL 72.4 % LA Diameter 2.0 cm RA Systolic Volume 4C AL 39.8 ml RA Systolic Volume 4C MOD 39.1 ml IVC Diameter 1.5 cm M-MODE LA Ao Ratio MM 1.0 AV Cusp Separation MM 2.6 cm DOPPLER AV Peak Velocity 111.0 cm/s LVOT Peak Velocity 33.0 cm/s AV Area Cont Eq vti 1.8 cm squared AV Area Cont Eq pk 1.5 cm squared MV Peak Velocity 72.0 cm/s MV Area PHT 4.0 cm squared Mitral E to A Ratio 1.2 TV Peak Velocity 176.5 cm/s TR Peak Velocity 242.0 cm/s TR Peak Gradient 23.4 mmHg TV Peak E Velocity 85.0 cm/s PV Peak Velocity 111.0 cm/s FINDINGS Left Ventricle Left ventricle is normal size. LV systolic function is normal with EF of 55-60%. No regional wall motion abnormalities are seen. Right Ventricle Normal in size and function Right Atrium Normal in size Left Atrium Normal in size Mitral Valve Structurally normal mitral valve. Mild mitral regurgitation Aortic Valve Structurally normal aortic valve. No significant stenosis or regurgitation. Tricuspid Valve Insufficient TR jet to evaluate RVSP Pulmonic Valve Not well visualized Pericardium Normal Aorta Normal in size IVC Appears to be normal CONCLUSIONS LV systolic function is normal with EF of 55-60% Mild mitral regurgitation No comparison studies are available. Bernardo Medina MD (Electronically Signed) Final Date: 05 January 2025 15:37 S
== END 2024-12-25 06:13 | disposition home or self-care (01) ==
PROVIDERS: PCP Family Medicine; Visit Provider Internal Medicine
DX: R06.02 Shortness of breath (principal); I34.0 Nonrheumatic mitral (valve) insufficiency
CPT/HCPCS: 93306

== ENCOUNTER → 2025-04-30 16:21 | Outpatient (BNVA) | payer OTHER, SELFPAY | PROVIDERS: PCP Family Medicine; Visit Provider Family Medicine | DX: Z91.014 Allergy to mammalian meats (principal); I10 Essential (primary) hypertension | CPT/HCPCS: 80053; 80061; 84439; 84443; 85025; 86003; 86008 ==